=== PATIENT | female | born 1980 | race Caucasian/White ===

== ENCOUNTER 2020-12-06 00:54 | Emergency (ER) | payer OTHER, SELFPAY ==
--- NOTE | ~2020-12-06 | XR_ITS ---
EXAMINATION: XR chest 2V DATE: 12/06/2020 01:31 INDICATION: Midsternal chest pain TECHNIQUE: PA and lateral views of the chest were obtained. COMPARISON: None FINDINGS: The lungs are clear with no focal airspace opacities, pulmonary edema, pleural effusion or pneumothor ax. The cardiomediastinal silhouette is normal. Visualized bones and soft tissues are unremarkable. IMPRESSION: 1. Normal chest radiograph. Reviewed, dictated and finalized at location A. IMPRESSION: 1. Normal chest radiograph.
[2020-12-06 01:01] VITALS: BP 140/72; PULSE 83; RESP 15; TEMP 36.9; O2SAT 100
--- NOTE | 2020-12-06 01:06 | ECG_ITS ---
Measurements Intervals [place] Rate: 79 P: 51 HI: 135 QRS: -15 QRSD: 92 T: 28 QT: 361 QTc: 416 Interpretive Statements SINUS RHYTHM BASELINE ARTIFACT- I, II, III, AVL, AVF, V6 NORMAL ECG Electronically Signed On 12-06-2020 7:10:07 CDT by Charly Rahman D.O.
--- NOTE | 2020-12-06 01:15 | ED.CHESTPAIN ---
HPI - Chest Pain General Chief Complaint: Chest Pain Stated Complaint: chest pain Time Seen by Provider: 12/06/20 01:11 History of Present Illness HPI narrative: Substernal chest pain since earlier today. Becomes sharp with breathing. Associated with cough and mild HARMAN. No fever, chills. She gets mild improvement from albuterol inhaler. Related Data Allergies Allergy/AdvReac Type Severity Reaction Status Date / Time erythromycin base Allergy Severe Dyspnea / Verified 01/20/19 09:38 SOB prochlorperazine AdvReac Severe Other Verified 01/20/19 09:38 Review of Systems Review of Systems: All systems reviewed & are unremarkable except as noted in HPI and below Cardiovascular: Cardiovascular: Reports chest pain Respiratory: Respiratory: Reports chest congestion, Reports cough and Reports dyspnea Gastrointestinal: Gastrointestinal: Reports no additional gastrointestinal complaints FORMERLY [facility] Past Medical History Medical History (Updated 12/06/20 @ 05:09 by Bryant Vicente MD) Bronchitis Social History Social History (Updated 12/06/20 @ 05:09 by Bryant Vicente MD) Smoking status: Current every day smoker Exam Const: General: no acute distress and alert Nutritional Appearance: obese Orientation/consciousness: patient oriented x3 HENMT: Head: normal to inspection Neck: Neck: normal visual inspection Chest: Chest palpation & inspection: no tenderness Resp: Effort & Inspection: normal respiratory effort Auscultation: clear to auscultation bilaterally, no rales, no rhonchi and no wheezes Cardio: Jugular venous distension: no JVD Rate: regular rate Rhythm: regular rhythm Heart sounds: no murmurs GI: Inspection: non-distended GI Palp: Yes Soft to palpation and No Tenderness to palpation present (GI) Skin: General skin exam: normal color Neuro: General: patient oriented x3 and moves all extremities Speech: normal speech Extrem: General: no edema Psych: Appearance: well kempt Affect: normal affect Course Vital Signs Vital signs: Vital Signs Temperature 36.9 C 12/06/20 01:01 Pulse Rate 83 12/06/20 01:01 Respiratory Rate 15 12/06/20 01:01 Blood Pressure 140/72 12/06/20 01:01 Pulse Oximetry 100 12/06/20 01:01 Temperature 36.9 C 12/06/20 01:01 Pulse Rate 76 12/06/20 03:59 Respiratory Rate 18 12/06/20 03:59 Blood Pressure 122/72 12/06/20 03:59 Pulse Oximetry 97 12/06/20 03:59 MDM - Chest Pain Differential Diagnosis Differential diagnosis: Likely atypical chest pain and other (pleurisy) Medical Records Data Attestation: I reviewed the patient's medical records. Lab Data Attestation: I reviewed the patient's lab results. Result diagrams: 12/06/20 01:14 12/06/20 01:14 Labs: Lab Results 12/06/20 12/06/20 12/06/20 Range/Units 01:14 01:14 01:14 WBC 8.1 (4.5-10.0) K/mm3 RBC 4.28 (4.2-5.4) M/mm3 Hgb 12.5 (12.0-15.0) g/dL Hct 39.1 (37.0-47.0) % MCV 91.4 (80-100) fl MCH 29.2 (26-34) pg MCHC 32.0 (32-36) g/dl RDW 14.3 (11.5-14.5) % Plt Count 312 (150-375) k/mm3 MPV 9.9 (7.4-10.4) fl Immature Gran % (Auto) 0.4 (0-0.5) % Neut % (Auto) 60.5 (45.5-73.1) % Lymph % (Auto) 25.9 (18.3-44.2) % [place] % (Auto) 6.9 (2.6-8.5) % Eos % (Auto) 5.4 H (0-4.4) % Baso % (Auto) 0.9 (0.2-1.2) % Lymph # (Auto) 2.09 (0.9-3.2) K/mm3 [place] # (Auto) 0.6 (0.1-0.6) K/mm3 Eos # (Auto) 0.4 H (0-0.3) K/mm3 Baso # (Auto) 0.1 (0.0-0.1) K/mm3 Abs Immat Gran (auto) 0.03 (0.00-0.031) K/mm3 Absolute Neuts (auto) 4.9 (1.3-6.7) K/mm3 Absolute Nucleated RBC 0.0 (0.0-0.012) K/mm3 Nucleated RBC % 0.0 (0.0-0.2) % PT 11.9 (11.1-14.7) Seconds INR 0.8 APTT 23.8 (22.3-36.8) SECONDS Sodium 137 (137-145) mmol/L Potassium 4.2 (3.4-5.0) mmol/L Chloride 104 (98-107) mmol/L Carbon Dioxide 29 (22-30) mmol/L Anion Gap
[2020-12-06 01:29] LABS: Basophils Absolute Auto 0.1 K/mm3 (0.0-0.1); Basophils Percent Auto 0.9 % (0.2-1.2); Eosinophils Absolute Auto 0.4 K/mm3 (0-0.3); Eosinophils Percent Auto 5.4 % (0-4.4); Hematocrit 39.1 % (37.0-47.0); Hemoglobin 12.5 g/dL (12.0-15.0); Immature Granulocyte Absolute 0.03 K/mm3 (0.00-0.031); Immature Granulocyte Percent A 0.4 % (0-0.5); Lymphocytes Absolute Auto 2.09 K/mm3 (0.9-3.2); Lymphocytes Percent Auto 25.9 % (18.3-44.2); Mean Corpuscular Hemoglobin 29.2 pg (26-34); Mean Corpuscular Volume 91.4 fl (80-100); Mean Platelet Volume 9.9 fl (7.4-10.4); Monocytes Absolute Auto 0.6 K/mm3 (0.1-0.6); Monocytes Percent Auto 6.9 % (2.6-8.5); Neutrophils Absolute Auto 4.9 K/mm3 (1.3-6.7); Neutrophils Percent Auto 60.5 % (45.5-73.1); Platelet Count Result 312 k/mm3 (150-375); Red Blood Count 4.28 M/mm3 (4.2-5.4); Red Cell Distribution Width 14.3 % (11.5-14.5); White Blood Count 8.1 K/mm3 (4.5-10.0)
[2020-12-06 01:47] LABS: INR 0.8; Prothrombin Time 11.9 Seconds (11.1-14.7)
[2020-12-06 01:48] LABS: Anion Gap 4 mmol/L (8-16); Blood Urea Nitrogen 23 mg/dL (7-17); Calcium 9.3 mg/dL (8.4-10.2); Carbon Dioxide 29 mmol/L (22-30); Chloride 104 mmol/L (98-107); Estimated CRCL calculation 110 ml/min; Estimated Glomerular Filt Rate > 60; Glucose 134 mg/dL (65-105); Partial Thromboplastin Time 23.8 SECONDS (22.3-36.8); Potassium 4.2 mmol/L (3.4-5.0); Sodium 137 mmol/L (137-145)
[2020-12-06 02:00] LABS: Troponin I < 0.012 ng/mL (0.000-0.034)
[2020-12-06] MEDS: KETOROLAC 30 MG/ML VIAL (*BKC) IV PUSH (02:26)
[2020-12-06] MEDS: ASPIRIN 81 MG CHEWABLE TABLET 324 MG PO (02:27)
[2020-12-06 02:32] VITALS: BP 120/73; PULSE 66; RESP 18; O2SAT 100
[2020-12-06 02:51] VITALS: PULSE 89; RESP 20
[2020-12-06] MEDS: IPRATROPIUM BR 0.02% INH SOLN 0.5 MG/2.5 ML VIAL INHALATION (02:51)
[2020-12-06] MEDS: ALBUTEROL SULFATE NEB 2.5 MG/0.5 ML INH 5 MG INHALATION (02:51)
[2020-12-06 02:58] VITALS: PULSE 79; RESP 20
[2020-12-06 03:59] VITALS: BP 122/72; PULSE 76; RESP 18; O2SAT 97
== END 2020-12-06 04:02 | disposition home or self-care (01) ==
PROVIDERS: Emergency Provider Emergency Medicine; PCP Physician Assistant
DX: R09.1 Pleurisy (principal); F17.200 Nicotine dependence, unspecified, uncomplicated
CPT/HCPCS: 36415; 71046; 80048; 84484; 85025; 85610; 85730; 93005; 94640; 96374; 99284; A9270; J1885

== ENCOUNTER 2021-12-10 11:11 | Emergency (ER) | payer OTHER, SELFPAY ==
--- NOTE | ~2021-12-10 | CT_ITS ---
EXAMINATION: CT brain wo con, CT facial bones wo con EXAM DATE: 12/10/2021 12:13 INDICATION: Trauma, head injury. TECHNIQUE: Spiral CT of the head was performed without contrast. Axial, coronal and sagittal images were reviewed. Spiral CT of the facial bones was performed without contrast. Axial images were revie wed. Coronal and sagittal reformatted images were also reviewed. The dose-length product (DLP) for this examination was 529.67 (accession [id number]), 318.54 (accession [id number]) mGy-cm. Th e exposure was tailored according to patient size, and iterative reconstruction (ASIR) was used as ad ditional dose reduction technique. There is no prior study for comparison. FINDINGS: HEAD CT: There is no acute intraparenchymal hemorrhage. No evidence of intraparenchymal brain mass l esion. No evidence of acute infarction. There is no mass effect or midline shift. There is no obstru ctive hydrocephalus suspected. There are no extra-axial collections. There are no calvarial acute f ractures. FACIAL CT: There are no displaced acute nasal bone fractures. The mandible, sinuses and orbits are i ntact. The orbits, globes and extraocular muscles are unremarkable. Soft tissue is unremarkable. The visualized sinuses and mastoid air cells are well aerated. Moderate leftward nasal septal dev iation. Right-sided sharmin bullosa. IMPRESSION: 1. No acute intracranial findings. 2. No acute facial fracture. Reviewed, dictated and finalized at location A. IMPRESSION: 1. No acute intracranial findings. 2. No acute facial fracture.
[2021-12-10 11:20] VITALS: BP 158/89; PULSE 61; RESP 18; TEMP 36.6; O2SAT 100
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
[2021-12-10] MEDS: IBUPROFEN 600 MG TABLET PO (12:46)
[2021-12-10 13:04] VITALS: BP 156/88; PULSE 60; RESP 18; O2SAT 99
== END 2021-12-10 13:06 | disposition home or self-care (01) ==
PROVIDERS: Emergency Provider Emergency Medicine; PCP Physician Assistant
DX: S00.93XA Contusion of unspecified part of head, initial encounter (principal); W51.XXXA Accidental striking against or bumped into by another person, initial encounter
CPT/HCPCS: 70450; 70486; 99284; A9270

== ENCOUNTER 2022-04-16 11:41 | Emergency (ER) | payer OTHER, SELFPAY ==
--- NOTE | 2022-04-16 11:43 | ED.BACK ---
HPI - Back Pain/Injury General Stated Complaint: Back Pain Time Seen by Provider: 04/16/22 11:43 Source: patient Mode of arrival: ambulatory Limitations: no limitations History of Present Illness HPI Narrative: Ms. Bean is a 41-year-old female patient presenting to the clinic today with complaints of right-sided back pain. She reports this is been going on for couple days now and has gradually gotten worse. States that this happened when she woke up on Wednesday. Denies any known injury. Has pain to the right side of her back/hip that is radiating down her leg. States when she straightens her foot that makes the pain worse. Related Data Home Medications Medication Instructions Recorded Confirmed armodafinil 150 mg tablet mg PO 12/10/21 atorvastatin 80 mg tablet 12/10/21 gabapentin 600 mg tablet 12/10/21 12/10/21 meloxicam 15 mg tablet 12/10/21 ropinirole 0.5 mg tablet mg 12/10/21 Allergies Allergy/AdvReac Type Severity Reaction Status Date / Time erythromycin base Allergy Severe Dyspnea / Verified 01/20/19 09:38 SOB metformin Allergy Rash Verified 12/10/21 11:24 prochlorperazine AdvReac Severe Other Verified 01/20/19 09:38 Review of Systems Review of Systems: Pertinent positives per HPI. Patient denies any fever, chills, rash, headache, visual changes, dizziness, cough, runny nose, sore throat, shortness of breath, chest pain, palpitations, nausea, vomiting, diarrhea, constipation, abdominal pain, or any urinary issues. PMFSH Past Medical History Medical History Bronchitis Social History Social History Smoking status: Current every day smoker Comments At the time of my signature, I reviewed and agree with the nursing past medical, surgical, social, and family history. There is no relevant family history pertinent to the patient complaint. Exam Narrative: General: Well-developed, well nourished, in no apparent distress Head: Normocephalic, atraumatic. Cardio: Regular rate and rhythm, s1 and s2 normal, no murmur appreciated. Resp: Clear to auscultation bilaterally, no rhonchi, rales, wheezing or rubs. Musculoskeletal: No deformity, tender to palpation over the SI joint and right side of the para spinous muscles, pain with hip flexion and internal and external rotation of the hip, patellar reflexes 2+, negative foot drop, muscle strength strong and equal, peripheral pulse strong, no edema, no cyanosis, slow and limping gait and station Course Course Emergency Course: Portions of this record may have been created with voice recognition software. Level of Care: Express Care Visit Vital Signs Vital signs: Vital signs reviewed MDM - Back Pain/Injury MDM Narrative Medical decision making narrative: At the time of visit patient is resting comfortably on the exam table. I suspect the patient has right-sided sciatica and will treat with a course of some Flexeril and prednisone. Supportive measures were discussed with the patient she voiced understanding of discharge instructions and agrees to treatment plan. If symptoms persist recommend follow-up with her PCP as she may need an MRI to rule out impingement syndrome Differential Diagnosis Differential diagnosis: Likely lumbar radiculopathy, sciatica and strain of lumbar region Discharge Plan Discharge Clinical Impression: Acute right-sided back pain with sciatica Patient Disposition: Home, Self-Care Condition: Stable Instructions: Antibiotic Form, Sciatica (ED), Lumbar Radiculopathy (ED), Lower Back Exercises (ED) Additional Instructions: May apply icy hot, blue emu, or a lidocaine to the affected area Massage the area using a tennis ball up against the wall to help alleviate some of the pain May apply ice to the affected area Take prednisone as prescribed Flexeril as needed for muscle spasms. Sedatio
[2022-04-16 11:49] VITALS: BP 157/88; PULSE 83; RESP 16; TEMP 36.8; O2SAT 100
== END 2022-04-16 12:01 | disposition home or self-care (01) ==
PROVIDERS: Emergency Provider Nurse Practitioner Family; PCP Physician Assistant
DX: M54.41 Lumbago with sciatica, right side (principal)
CPT/HCPCS: 99213; G0463

== ENCOUNTER 2022-07-10 11:03 | Emergency (ER) | payer OTHER, SELFPAY ==
[2022-07-10 11:16] VITALS: BP 144/85; PULSE 81; RESP 16; TEMP 36.4; O2SAT 98
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
== END 2022-07-10 12:02 | disposition home or self-care (01) ==
PROVIDERS: Emergency Provider Nurse Practitioner; PCP Physician Assistant
DX: S00.12XA Contusion of left eyelid and periocular area, initial encounter (principal); Y00.XXXA Assault by blunt object, initial encounter; Y99.0 Civilian activity done for income or pay
CPT/HCPCS: 99213; G0463

== ENCOUNTER 2022-09-29 07:25 | Outpatient (CLI) | payer MEDICAID, SELFPAY ==
--- NOTE | 2022-09-29 08:06 | ECG_ITS ---
Measurements Intervals [place] Rate: 85 P: 60 [place]: 133 QRS: -13 QRSD: 98 T: 48 QT: 384 QTc: 458 Interpretive Statements SINUS RHYTHM INCOMPLETE RIGHT BUNDLE BRANCH BLOCK DELAYED PRECORDIAL R/S TRANSITION BORDERLINE ECG COMPARED TO ECG 12/06/2020 01:02:21 NO SIGNIFICANT CHANGES Electronically Signed On 09-29-2022 8:23:47 [employer]ER by Charly Rahman D.O.
[2022-09-29 08:37] LABS: Alanine Aminotransferase 22 U/L (6-35); Alkaline Phosphatase 91 U/L (38-126); Anion Gap 3 mmol/L (8-16); Aspartate Amino Transferase 21 U/L (14-36); Bilirubin,Total 0.5 mg/dL (0.2-1.3); Blood Urea Nitrogen 15 mg/dL (7-17); Calcium 8.8 mg/dL (8.4-10.2); Carbon Dioxide 27 mmol/L (22-30); Chloride 109 mmol/L (98-107); Estimated Glomerular Filt Rate > 60; Glucose 144 mg/dL (65-110); Potassium 3.7 mmol/L (3.4-5.0); Sodium 139 mmol/L (137-145)
== END 2022-09-29 07:26 | disposition home or self-care (01) ==
PROVIDERS: PCP Physician Assistant; Visit Provider Obstetrics & Gynecology
DX: Z01.812 Encounter for preprocedural laboratory examination (principal); Z01.810 Encounter for preprocedural cardiovascular examination; N94.6 Dysmenorrhea, unspecified; E78.5 Hyperlipidemia, unspecified; I45.10 Unspecified right bundle-branch block
CPT/HCPCS: 36415; 80053; 86850; 86900; 86901; 93005

== ENCOUNTER 2022-09-30 01:20 | Day surgery (SDC) | payer MEDICAID, SELFPAY ==
[2022-09-21 11:20] VITALS: BMI 35.2
--- NOTE | 2022-09-21 11:27 | PC.NURSE ---
Report to the Outpatient Waiting Room, entrance under the green pavilion located off [facility], at time 7:30 on date 09/30/22. Planned Procedure Time: 9:30. Time changes happen often and if your time is changed the preop area will call you the afternoon before. - You and your visitor will be asked to self-screen and do not enter if you have any COVID symptoms. - Only one visitor is requested with a max of two and NO children visitors are allowed at this time. - The patient visitor may be requested to leave or wait in car when not with patient due to distancing restrictions. - A mask is optional within the hospital. Patients may have clear liquids (water, carbonated beverages, clear teas, apple juice) until 3 hours prior to surgery (6:30) with a maximum of 20 ounces. - No food from midnight until time of surgery Take the following medications with a SIP of water the morning of surgery: CITALOPRAM Medications to discontinue per physician: N/A Date to take last dose: N/A Please no make-up, nail zambian, hairspray, perfume, deodorant, or body powder the day of surgery. No jewelry (including any body piercings) or valuables the day of surgery, leave them at home. Please take a shower or bath the night before, or the morning of, surgery with an antibacterial soap. Wear comfortable, loose fitting clothing. - Jewelry must be removed prior to entering the operating room. Rings and piercings that are not removed may be cut off. - The hospital will not accept responsibility for valuables. - Please leave all valuables, including medications, at home the day of surgery. If you are going home after surgery, a licensed shag truck driver must drive you home. - NO public transportation without another adult if you receive anesthesia. - We recommend that an adult stay with you for 24 hours following discharge. - We also recommend that you do not drive, make important decision, drink alcoholic beverages, or take any drugs that were not prescribed by your health care provider for at least 24 hours after your discharge time. Follow any additional instructions given to you from your surgeon. If you or anyone in your household have experienced Covid symptoms in the past week, please notify your surgeon or the nurse liaison at the phone number below for possible testing. Telephone instructions given to PT - ASH ARANGO and asked if any additional questions and then verbalized understanding. Patient advised to call surgeon office or pre surgery nurse liaison [phone] if any additional questions.
[2022-09-30] VITALS (9 sets, daily range): BP systolic 115–140; BP diastolic 52–91; PULSE 69–106; RESP 16–24; TEMP 36.5–37.3; O2SAT 92–99
--- NOTE | 2022-09-30 07:40 | WPDANESEPPF ---
Anes - Initial Pre Proc Eval Procedure: Operation Date: 09/30/22 09:30 Proposed Procedures p Total Laparoscopic Hysterectomy with Bilateral Salpingo Oophorectomy - Radha Haynes MD Date/Time: 09/30/22 07:40 Surgeon: Radha Haynes MD Pre Op Diagnosis: dysmenorrhea Patient Data Age: 42 Gender: F Height: 1.75 m Weight: 108 kg Allergies Allergy/AdvReac Type Severity Reaction Status Date / Time erythromycin base Allergy Severe Nausea and Verified 09/30/22 07:45 Vomiting metformin Allergy Rash Verified 09/30/22 07:45 prochlorperazine AdvReac Severe Agitated Verified 09/30/22 07:45 Home Medications Medication Instructions Recorded Confirmed Type atorvastatin 80 mg tablet 80 mg PO DAILY 12/10/21 09/21/22 History gabapentin 600 mg tablet 600 mg PO HS 12/10/21 09/21/22 History meloxicam 15 mg tablet 15 mg PO DAILY PRN Pain 12/10/21 09/21/22 History ropinirole 0.5 mg tablet 0.5 mg PO HS 12/10/21 09/21/22 History medroxyprogesterone 150 mg/mL 150 mg IM [id number] 07/10/22 09/21/22 History intramuscular suspension ondansetron HCl 8 mg tablet 8 mg PO Q8H PRN Nausea 07/10/22 09/21/22 History sitagliptin phosphate 100 mg 100 mg PO HS 07/10/22 09/21/22 History tablet (Januvia) trazodone 50 mg tablet 50 mg PO PRN PRN Anxiety 07/10/22 09/21/22 History albuterol sulfate 90 mcg/actuation 2 puff inhalation QID PRN Allergy 09/21/22 09/21/22 History aerosol inhaler Symptoms armodafinil 250 mg tablet 250 mg PO QAM 09/21/22 09/21/22 History citalopram 40 mg tablet 40 mg PO DAILY 09/21/22 09/21/22 History dexlansoprazole 60 mg 80 mg PO DAILY 09/21/22 09/21/22 History capsule,biphase delayed release (Dexilant) Patient hx anesthesia problems: none Family hx anesthesia problems: none Results Review: All pre-operative results and documents have been reviewed as part of the pre-operative evaluation. [facility] Past Medical History Medical History (Updated 09/30/22 @ 07:41 by Wilian Aevry DO) Anxiety Bronchitis Depression GERD (gastroesophageal reflux disease) Hyperlipidemia Narcolepsy DARCI (obstructive sleep apnea) PCOS (polycystic ovarian syndrome) RLS (restless legs syndrome) Surgical History Surgical History (Updated 09/30/22 @ 07:41 by Wilian Avery DO) History of tonsillectomy Social History Social History (Reviewed 07/10/22 @ 11:57 by Kaelyn Aguirre, [facility], ) Smoking packs per day: 1.25 Smoking cigarettes per day: 25.0 Years smoked: 20 Smoking pack-years: 25.00 Smoking status: Current every day smoker Tobacco type: cigarettes Alcohol intake: never Substance use: never Substance use type: does not use Living arrangements: with family Spiritual care concerns: No Anes - Eval Final PreProcedure Day of Procedure 09/30/22 07:40 Patient weight: obese Heart: regular rate and rhythm Lungs: clear to auscultation Airway: Mallampati scale class II Neurological: alert and oriented Last oral intake: >/= 8 hours ASA classification: III Emergent: no Anesthetic plan: proceed Anesthesia type and monitoring: general ETT and standard monitoring Results Review: All pre-operative results and documents have been reviewed as part of the pre-operative evaluation. Informed Consent: The patient's anesthetic plan and its attendant risks and benefits were discussed with the patient/family/POA. Questions were solicited and answers provided to the satisfaction of the patient/family/POA.
[2022-09-30] MEDS: LACTATED RINGERS 1,000 ML 30 ML IV CONT ×2 (08:02→10:40)
[2022-09-30] MEDS: ACETAMINOPHEN 500 MG TABLET 1000 MG PO (08:03)
[2022-09-30] MEDS: KETOROLAC 15 MG/ML VIAL (*BKC) IV PUSH (08:04)
--- NOTE | 2022-09-30 08:09 | WPDHPUPDATE1 ---
History and Physical Update Update Date/Time: 09/30/22 08:09 History and Physical has been reviewed, including an updated exam of the patient. There are NO changes in the patient's condition. Risks, benefits, and alternatives have been discussed and questions answered. Patient agrees to proceed with procedure.
[2022-09-30] MEDS: ceFAZolin 2 GM/D5W 50 ML 2 GM/50 ML BAG IVPB (08:45)
--- NOTE | 2022-09-30 10:04 | SUR.OPER ---
PATIENTS PERINEAL RING REMOVED PRIOR TO PREP. 1 SILVER BALL AND RING IN CUP WITH PATIENT LABEL/WITH PATIENT TO PACU.
--- NOTE | 2022-09-30 10:38 | W.PM.PROC2 ---
Procedure Note - Detailed Date of Procedure 09/30/22 Pre-op Diagnosis dysmenorrhea Post-op Diagnosis Same Procedure Performed Total laparoscopic hysterectomy and bilateral salpingo-oophorectomy. Surgeon Radha Haynes MD Anesthesia General Findings Normal pelvic anatomy Description of Procedure This patient was taken to the operating room. She was prepped and draped in the dorsal lithotomy position after induction of general anesthesia. The uterine manipulator and Stephanie cup were placed. This was done with a speculum and tenaculum. The speculum was placed. The cervix was grasped with a tenaculum. The stay sutures were placed at 3 and 9:00 a.m.. The stay sutures of 0 Vicryl were brought through the appropriately sized Stephanie cup. The tip of the HARINI manipulator was placed in the intrauterine cavity. The cup was slid into place around the cervix and into the fornices. It was locked into place. The sutures were then wrapped around the handle and tied under tension. A 5 mm skin incision was made in the left upper quadrant the abdomen. A 5 mm trocar was inserted into the intrauterine cavity under direct visualization of the scope. Pneumoperitoneum was achieved. A left lower quadrant 11 mm incision was made with scalpel. An 11 mm trocar was inserted into the anterior abdominal cavity under direct visualization the scope. A 5 mm infraumbilical incision was made with a scalpel and a 5 mm trocar was inserted the intra-abdominal cavity under direct visualization of the scope. Bilateral ureteral lysis was performed. This was done from the pelvic brim down to the uterine artery. This was done with careful dissection using sharp and blunt dissection. The infundibulopelvic ligaments were isolated after identification of the ureters bilaterally. These infundibulopelvic ligaments were cauterized and transected with LigaSure cautery. The para ovarian tissue was cauterized and transected with LigaSure cautery bilaterally. Moving around the ovary into the broad ligament the tissue was cauterized transected with LigaSure cautery. The round ligaments were cauterized transected with LigaSure cautery this was all done in a bilateral fashion. In a stepwise fashion along the lateral aspects of the uterus the round ligament and broad ligaments were cauterized transected down to the level of the uterine arteries. A bladder flap was created in the bladder was moved distally to the end of the cervix and over the Stephanie cup. The bilateral uterine arteries were cauterized and transected. Colpotomy was then performed. In a circumferential fashion the vagina was transected using unipolar cautery. The incision was made down on the Stephanie cup. The uterus, cervix, fallopian tubes and ovaries were taken out through the vagina. A pneumo occluder was placed in the vagina. The vaginal cuff was closed with a 0 V lock suture in a running fashion. The pelvis was irrigated with copious amounts antibiotic irrigation. The ureters were again examined and found to be intact and flowing freely under the uterine arteries into the bladder. The bladder was intact. It was examined directly. The vagina was irrigated with Betadine solution after removal of the Pneumo occluder. The patient was taken to recovery room. She was stable condition. Sponge lap and needle counts were correct x2. Estimated Blood Loss 150 Drains Yes Packing No Pathology Yes Complications No immediate complications Condition Stable Disposition Floor
[2022-09-30] MEDS: fentaNYL CITRATE INJ (*CRX) 100 MCG/2 ML VIAL 25 MCG IV PUSH ×5 (11:05→12:06)
--- NOTE | 2022-09-30 12:20 | ADMGEN ---
This patient, Veena Bean, was admitted to [facility] 2nd Floor Room 283-00. Patient/family oriented to hospital policies and general routines including ID bracelet, bed and alarms, visiting hours, pain management, procedures, bathroom and other care routines, personal items, smoking policy, room service/diet, and visiting hours. Information on how to activate the Rapid Response Team has been discussed. Patient/Family are encouraged to report perceived risks to care and to ask questions if they do not understand what they are told or what they should do.
[2022-09-30] MEDS: DEXTROSE 5%/0.45% SOD CHL 1,000 ML 125 ML IV CONT (12:39)
[2022-09-30] MEDS: KETOROLAC 30 MG/ML VIAL (*BKC) IV PUSH (13:44)
[2022-09-30] MEDS: HYDROcodone/acetaminophen (*CRX) 5-325 MG TABLET 1 TAB PO (14:49)
== END 2022-09-30 17:10 | disposition home or self-care (01) ==
LOC: ANHSURGERY 07:23 → ANHOB2 12:20
PROVIDERS: PCP Physician Assistant; Visit Provider Obstetrics & Gynecology
PROC: 0UT9FZZ Resection of Uterus, Via Natural or Artificial Opening With Percutaneous Endoscopic Assistance (ICD-10-PCS; CPT 58571; principal; 2022-09-30 09:30)
DX: N72 Inflammatory disease of cervix uteri (principal); N83.8 Other noninflammatory disorders of ovary, fallopian tube and broad ligament; N94.6 Dysmenorrhea, unspecified; E28.2 Polycystic ovarian syndrome; G47.33 Obstructive sleep apnea (adult) (pediatric); G25.81 Restless legs syndrome; E78.5 Hyperlipidemia, unspecified; K21.9 Gastro-esophageal reflux disease without esophagitis; F41.9 Anxiety disorder, unspecified; F32.A Depression, unspecified; Z79.84 Long term (current) use of oral hypoglycemic drugs; Z79.51 Long term (current) use of inhaled steroids; F17.210 Nicotine dependence, cigarettes, uncomplicated; E66.9 Obesity, unspecified; Z68.35 Body mass index [BMI] 35.0-35.9, adult
CPT/HCPCS: 58571; 88307; 99199; A9270; J0360; J0690; J1100; J1170; J1885; J2250; J2405; J2704; J3010; J7030; J7120

== ENCOUNTER 2023-03-14 19:30 | Emergency (ER) | payer OTHER, SELFPAY ==
[2023-03-14 19:32] VITALS: BP 150/82; PULSE 80; RESP 18; TEMP 36.6; O2SAT 100
--- NOTE | 2023-03-14 20:08 | ED.EYEPROB ---
HPI - Eye Problem General Chief complaint: Eye Problems Stated complaint: left eye swelling Time Seen by Provider: 03/14/23 19:42 Source: patient Mode of arrival: ambulatory Limitations: no limitations History of Present Illness HPI Narrative: This is a 42-year-old female who presents to the ED with chief complaint of left eye irritation onset today around 10 AM. Patient reports that she has history of allergic rhinitis and conjunctivitis but today is much worse than usual. She does not note any injury to the eye. Reports constant tearing. She does not endorse any crusting or purulent material. She states she was cleaning the kitchen and thinks that there may be some dust in the eye. Endorses photophobia. Denies fevers, chills, facial swelling, vision changes. Related Data Home Medications Medication Instructions Recorded Confirmed atorvastatin 80 mg tablet 80 mg PO DAILY 12/10/21 09/30/22 gabapentin 600 mg tablet 600 mg PO HS 12/10/21 09/30/22 meloxicam 15 mg tablet 15 mg PO DAILY PRN Pain 12/10/21 09/30/22 ropinirole 0.5 mg tablet 0.5 mg PO HS 12/10/21 09/30/22 medroxyprogesterone 150 mg/mL 150 mg IM [id number] 07/10/22 09/21/22 intramuscular suspension ondansetron HCl 8 mg tablet 8 mg PO Q8H PRN Nausea 07/10/22 09/30/22 sitagliptin phosphate 100 mg 100 mg PO HS 07/10/22 09/30/22 tablet (Januvia) trazodone 50 mg tablet 50 mg PO PRN PRN Anxiety 07/10/22 09/30/22 albuterol sulfate 90 mcg/actuation 2 puff inhalation QID PRN Allergy 09/21/22 09/30/22 aerosol inhaler Symptoms armodafinil 250 mg tablet 250 mg PO QAM 09/21/22 09/30/22 citalopram 40 mg tablet 40 mg PO DAILY 09/21/22 09/30/22 dexlansoprazole 60 mg 80 mg PO DAILY 09/21/22 09/30/22 capsule,biphase delayed release (Dexilant) Allergies Allergy/AdvReac Type Severity Reaction Status Date / Time erythromycin base Allergy Severe Nausea and Verified 03/14/23 20:07 Vomiting metformin Allergy Rash Verified 03/14/23 20:07 prochlorperazine AdvReac Severe Agitated Verified 03/14/23 20:07 PMFSH Past Medical History Medical History (Updated 03/15/23 @ 00:00 by Kartik Skinner) Anxiety Bronchitis Depression GERD (gastroesophageal reflux disease) Hyperlipidemia Narcolepsy DARCI (obstructive sleep apnea) PCOS (polycystic ovarian syndrome) RLS (restless legs syndrome) Surgical History Surgical History (Updated 09/30/22 @ 07:41 by Wilian Avery, DO) History of tonsillectomy Social History Social History Smoking packs per day: 1.25 Smoking cigarettes per day: 25.0 Years smoked: 20 Smoking pack-years: 25.00 Smoking status: Current every day smoker Tobacco type: cigarettes Alcohol intake: never Substance use: never Substance use type: does not use Living arrangements: with family Spiritual care concerns: No Exam Narrative: GENERAL: Well-appearing, well-nourished, and in no acute distress. HEAD: Normocephalic, atraumatic. EYES: PERRLA and EOMI. vision intact. Conjunctival injection on the left. Clear tearing on the left. ENT: Nares clear, no rhinorrhea or epistaxis. Mucous membranes moist. Oropharynx without tonsillar hypertrophy exudate or other lesions. NECK: Supple. No adenopathy or masses. CHEST: No respiratory distress. Clear to auscultation. No wheezes rales or rhonchi HEART: Regular rate and rhythm. No murmur heard. Normal peripheral pulses. ABDOMEN: Soft, nontender, nondistended, normal active bowel sounds. MSK: Normal range of motion. No edema. SKIN: Warm, dry, no rash. NEURO: Alert and oriented x3. No focal deficits. PSYCH: Normal mood and affect. Feldman lamp examination left eye: Able to visualize possible dust particulates in the inferior lid margin. Removed with ease. Immediate relief with tetracaine. I was well irrigated. Course Vital Signs Vital signs: Vital Signs Temperature 97.9 F 03/14/23 19:32 Pulse Rate
== END 2023-03-14 20:27 | disposition home or self-care (01) ==
PROVIDERS: Emergency Provider Physician Assistant; PCP Physician Assistant
DX: T15.12XA Foreign body in conjunctival sac, left eye, initial encounter (principal); H10.9 Unspecified conjunctivitis; E78.5 Hyperlipidemia, unspecified; E28.2 Polycystic ovarian syndrome; G47.33 Obstructive sleep apnea (adult) (pediatric); G25.81 Restless legs syndrome; K21.9 Gastro-esophageal reflux disease without esophagitis; F41.9 Anxiety disorder, unspecified; F32.A Depression, unspecified; F17.210 Nicotine dependence, cigarettes, uncomplicated; Z79.84 Long term (current) use of oral hypoglycemic drugs
CPT/HCPCS: 65205; 65220; 99283; A9270

== ENCOUNTER 2023-08-09 08:06 | Emergency (ER) | payer SELFPAY ==
--- NOTE | 2023-08-09 08:10 | ED.FEMALEGU ---
HPI - Female Genitourinary General Chief complaint: Urogenital-Female Stated complaint: UTI Time Seen by Provider: 08/09/23 08:08 Source: patient Mode of arrival: ambulatory Limitations: no limitations History of Present Illness HPI Narrative: Veena is a 43-year-old female patient presenting to the clinic today with complaints of possible UTI. She reports she developed bladder pain and pain in her urethra this morning around 730. States that this pain woke her up. No fever or chills. Denies any back pain or abdominal pain. Related Data Home Medications Medication Instructions Recorded Confirmed atorvastatin 80 mg tablet 80 mg PO DAILY 12/10/21 08/09/23 meloxicam 15 mg tablet 15 mg PO DAILY PRN Pain 12/10/21 08/09/23 ropinirole 0.5 mg tablet 0.5 mg PO HS 12/10/21 08/09/23 sitagliptin phosphate 100 mg 100 mg PO HS 07/10/22 08/09/23 tablet (Januvia) trazodone 50 mg tablet 50 mg PO PRN PRN Anxiety 07/10/22 08/09/23 armodafinil 250 mg tablet 250 mg PO QAM 09/21/22 08/09/23 citalopram 40 mg tablet 40 mg PO DAILY 09/21/22 08/09/23 dexlansoprazole 60 mg 80 mg PO DAILY 09/21/22 08/09/23 capsule,biphase delayed release (Dexilant) Allergies Allergy/AdvReac Type Severity Reaction Status Date / Time erythromycin base Allergy Severe Nausea and Verified 03/14/23 20:07 Vomiting metformin Allergy Rash Verified 03/14/23 20:07 prochlorperazine AdvReac Severe Agitated Verified 03/14/23 20:07 Review of Systems Review of Systems: Pertinent positives per HPI. Patient denies any fever, chills, rash, headache, visual changes, dizziness, cough, runny nose, sore throat, shortness of breath, chest pain, palpitations, nausea, vomiting, diarrhea, constipation, abdominal pain, or any urinary issues. [facility] Past Medical History Medical History Anxiety Bronchitis Depression GERD (gastroesophageal reflux disease) Hyperlipidemia Narcolepsy DARCI (obstructive sleep apnea) PCOS (polycystic ovarian syndrome) RLS (restless legs syndrome) Surgical History Surgical History History of tonsillectomy Social History Social History Smoking packs per day: 1.25 Smoking cigarettes per day: 25.0 Years smoked: 20 Smoking pack-years: 25.00 Smoking status: Current every day smoker Tobacco type: cigarettes Alcohol intake: never Substance use: never Substance use type: does not use Living arrangements: with family Spiritual care concerns: No Comments At the time of my signature, I reviewed and agree with the nursing past medical, surgical, social, and family history. There is no relevant family history pertinent to the patient complaint. Exam Narrative: General: Well-developed, well nourished, in no apparent distress. Head: Normocephalic, atraumatic. Cardio: Regular rate and rhythm, s1 and s2 normal, no murmur appreciated. Resp: Clear to auscultation bilaterally, no rhonchi, rales, wheezing or rubs. Abdomen: Soft, pliable, bowel sounds present in all quadrants, tender to palpation over urinary bladder, no organomegly, no CVAT tenderness. Course Course Emergency Course: Portions of this record may have been created with voice recognition software. Level of Care: Express Care Visit Vital Signs Vital signs: Vital signs reviewed MDM - Female Genitourinary MDM Narrative Medical decision making narrative: At the time of visit patient is resting on the exam table. UA dip was collected-patient has passed a kidney stone. UA is negative for any infection or blood. I suspect patient may be having some bladder spasms. Taking Pyridium for the next 2 days and increasing fluids and staying well hydrated. She should follow-up with her PCP in 2 days if symptoms persist to determine need for a ultrasound. Supportive measures were discu
[2023-08-09 08:16] VITALS: BP 142/86; PULSE 88; RESP 16; TEMP 36.3; O2SAT 100
== END 2023-08-09 08:42 | disposition home or self-care (01) ==
PROVIDERS: Emergency Provider Nurse Practitioner Family; PCP Physician Assistant
DX: R39.89 Other symptoms and signs involving the genitourinary system (principal); F17.210 Nicotine dependence, cigarettes, uncomplicated; K21.9 Gastro-esophageal reflux disease without esophagitis; E78.5 Hyperlipidemia, unspecified; E28.2 Polycystic ovarian syndrome; G25.81 Restless legs syndrome; F41.9 Anxiety disorder, unspecified; F32.A Depression, unspecified
CPT/HCPCS: 81003; 99213; G0463

== ENCOUNTER 2023-08-12 17:32 | Emergency (ER) | payer SELFPAY | END 2023-08-12 17:35 | disposition left against medical advice (07) | PROVIDERS: PCP Physician Assistant | DX: Z53.21 Procedure and treatment not carried out due to patient leaving prior to being seen by health care provider (principal) | CPT/HCPCS: 99199 ==

== ENCOUNTER 2023-09-01 13:39 | Emergency (ER) | payer SELFPAY ==
[2023-09-01 13:40] VITALS: BP 124/87; PULSE 96; RESP 16; TEMP 36.5; O2SAT 98
--- NOTE | 2023-09-01 15:28 | PC.NURSE ---
Patient being wheeled out by visitor to smoke a cigarette .
--- NOTE | 2023-09-01 15:32 | PC.NURSE ---
Patient seen being wheeled back into department.
== END 2023-09-01 15:38 | disposition left against medical advice (07) ==
LOC: ANHED 15:43
DX: M54.9 Dorsalgia, unspecified (principal)
CPT/HCPCS: 99199

== ENCOUNTER 2023-09-10 13:52 | Emergency (ER) | payer OTHER, SELFPAY ==
[2023-09-10 14:25] VITALS: BP 132/68; PULSE 77; RESP 20; TEMP 36.2; O2SAT 97
--- NOTE | 2023-09-10 14:55 | ED.URI ---
HPI - URI/Sore Throat General Chief Complaint: Upper Respiratory Infection Stated Complaint: Cough/Eyes Irritation History of Present Illness HPI Narrative: 43-year-old female presented for complaint of 10 days of dry cough, sinus congestion, headache. Endorses wheezing at times, cough is nonproductive. Also states both eyes are irritated with redness, green drainage and crust for a few days. Also states her mouth is sensitive to hot and cold. Taking otc meds without relief. Family with similar symptoms. Smokes 1ppd. Denies sob, cp, palpitations, n/v/d/f/c. Related Data Home Medications Medication Instructions Recorded Confirmed atorvastatin 80 mg tablet 80 mg PO DAILY 12/10/21 09/10/23 meloxicam 15 mg tablet 15 mg PO DAILY PRN Pain 12/10/21 09/10/23 ropinirole 0.5 mg tablet 0.5 mg PO HS 12/10/21 09/10/23 sitagliptin phosphate 100 mg 100 mg PO HS 07/10/22 09/10/23 tablet (Januvia) trazodone 50 mg tablet 50 mg PO PRN PRN Anxiety 07/10/22 08/09/23 armodafinil 250 mg tablet 250 mg PO QAM 09/21/22 09/10/23 citalopram 40 mg tablet 40 mg PO DAILY 09/21/22 09/10/23 dexlansoprazole 60 mg 80 mg PO DAILY 09/21/22 09/10/23 capsule,biphase delayed release (Dexilant) Allergies Allergy/AdvReac Type Severity Reaction Status Date / Time erythromycin base Allergy Severe Nausea and Verified 09/10/23 14:59 Vomiting metformin Allergy Rash Verified 09/10/23 14:59 prochlorperazine AdvReac Severe Agitated Verified 09/10/23 14:59 Review of Systems Review of Systems: per HPI [facility] Past Medical History Medical History Anxiety Bronchitis Depression GERD (gastroesophageal reflux disease) Hyperlipidemia Narcolepsy DARCI (obstructive sleep apnea) PCOS (polycystic ovarian syndrome) RLS (restless legs syndrome) Surgical History Surgical History History of tonsillectomy Social History Social History Smoking packs per day: 1.25 Smoking cigarettes per day: 25.0 Years smoked: 20 Smoking pack-years: 25.00 Smoking status: Current every day smoker Tobacco type: cigarettes Alcohol intake: never Substance use: never Substance use type: does not use Living arrangements: with family Spiritual care concerns: No Exam Narrative: GENERAL: mildly Ill-appearing, no acute distress. EYES: conjunctivae clear ENT: Mucous membranes moist. nasal congestion, TMs pearly sagastume with normal light reflex bilaterally; no tragal tenderness. Oropharynx erythematous without lesions. No drooling, no hoarseness, no trismus, uvula midline. No tripod positioning, hot potato voice, or soft palate swelling. NECK: Supple. No lymphadenopathy CHEST: Clear to auscultation, breath sounds equal. No respiratory distress, speaks in full sentences. HEART: Regular rate and rhythm. No murmur heard. SKIN: Warm, dry, no rash. NEURO: Alert and oriented x3. Course Course Emergency Course: Patient is aware of diagnosis, understands and agrees to treatment plan. Anticipatory guidance given. Patient agrees to follow-up as directed and is aware of reasons to seek care at the emergency department. Portions of this record may have been created with voice recognition software Level of Care: Express Care Visit Vital Signs Vital signs: Vital Signs Temperature 97.2 F L 09/10/23 14:25 Pulse Rate 77 09/10/23 14:25 Respiratory Rate 20 09/10/23 14:25 Blood Pressure 132/68 09/10/23 14:25 Pulse Oximetry 97 09/10/23 14:25 Oxygen Delivery Room Air 09/10/23 14:25 Temperature 97.2 F L 09/10/23 14:25 Pulse Rate 77 09/10/23 14:25 Respiratory Rate 20 09/10/23 14:25 Blood Pressure 132/68 09/10/23 14:25 Pulse Oximetry 97 09/10/23 14:25 Oxygen Delivery Room Air 09/10/23 14:25 MDM - URI/Sore Throat MDM Narrative Medical decis
== END 2023-09-10 15:06 | disposition home or self-care (01) ==
PROVIDERS: Emergency Provider Nurse Practitioner Family; PCP Physician Assistant
DX: J32.9 Chronic sinusitis, unspecified (principal); H10.9 Unspecified conjunctivitis; E78.5 Hyperlipidemia, unspecified; F17.210 Nicotine dependence, cigarettes, uncomplicated; Z79.1 Long term (current) use of non-steroidal anti-inflammatories (NSAID); Z79.899 Other long term (current) drug therapy
CPT/HCPCS: 99213; G0463

== ENCOUNTER 2024-08-16 10:01 | Emergency (ER) | payer SELFPAY ==
--- NOTE | 2024-08-16 10:10 | ED_ITS ---
HPI - URI/Sore Throat General Chief Complaint: Upper Respiratory Infection Stated Complaint: cough,hard time breathing with moving Time Seen by Provider: 08/16/24 11:12 Source: patient and RN notes reviewed Mode of arrival: ambulatory Limitations: no limitations History of Present Illness HPI Narrative: 44-year-old female presents with concern for 5 day history of cough, chest muscles hurt with coughing, hoarse voice, chest congestion, body aches, chills. She reports exertional shortness of breath. She reports she has been taking an expectorant MD elicited complaint: cough Related Data Home Medications ?Medication ?Instructions ?Recorded ?Confirmed ?Last Taken ?Type atorvastatin 80 mg tablet 80 mg PO DAILY 12/10/21 08/16/24 09/29/22 History meloxicam 15 mg tablet 15 mg PO DAILY PRN Pain 12/10/21 08/16/24 09/29/22 History ropinirole 0.5 mg tablet 0.5 mg PO HS 12/10/21 08/16/24 09/29/22 History sitagliptin phosphate 100 mg 100 mg PO HS 07/10/22 08/16/24 09/29/22 History tablet (Januvia) trazodone 50 mg tablet 50 mg PO PRN PRN Anxiety 07/10/22 08/16/24 Unknown History armodafinil 250 mg tablet 250 mg PO QAM 09/21/22 08/16/24 09/29/22 History citalopram 40 mg tablet 40 mg PO DAILY 09/21/22 08/16/24 09/29/22 History dexlansoprazole 60 mg 80 mg PO DAILY 09/21/22 08/16/24 09/29/22 History capsule,biphase delayed release (Dexilant) albuterol sulfate 90 mcg/actuation inhalation 08/16/24 Unknown History aerosol inhaler Allergies Allergy/AdvReac Type Severity Reaction Status Date / Time erythromycin base Allergy Severe Nausea and Verified 08/16/24 10:26 Vomiting metformin Allergy Rash Verified 08/16/24 10:26 prochlorperazine AdvReac Severe Agitated Verified 08/16/24 10:26 Review of Systems Review of Systems: CONSTITUTIONAL: Denies malaise, chills, sweats, or fever. EYES: Denies visual changes, redness, or discharge. ENT: Reports rhinorrhea, congestion, sinus pain, otalgia and sore throat. CARDIOVASCULAR: Denies chest pain, palpitations, or edema. RESPIRATORY: Reports cough, exertional dyspnea. GASTROINTESTINAL: Denies abdominal pain, nausea, vomiting, diarrhea SKIN: Denies rash or itching. MUSCULOSKELETAL: Denies myalgia. NEUROLOGIC: Denies headache. All systems reviewed & are unremarkable except as noted in HPI and below PMFSH Past Medical History Medical History Anxiety Bronchitis Depression GERD (gastroesophageal reflux disease) Hyperlipidemia Narcolepsy DARCI (obstructive sleep apnea) PCOS (polycystic ovarian syndrome) RLS (restless legs syndrome) Surgical History Surgical History History of tonsillectomy Social History Social History Smoking packs per day: 1.25 Smoking cigarettes per day: 25.0 Years smoked: 20 Smoking pack-years: 25.00 Smoking status: Current every day smoker Tobacco type: cigarettes Alcohol intake: never Substance use: never Substance use type: does not use Living arrangements: with family Spiritual care concerns: No Comments At time of signature, agree with nursing past medical, surgical, social and family history. There is no relevant family history pertinent to the presenting complaint Exam Narrative: GENERAL: Well-appearing, well-nourished, and in no acute distress. HEAD: Normocephalic EYES: PERRLA, conjunctivae clear ENT: Nares clear, turbinates edematous and erythematous, clear discharge. Mucous membranes moist. TM pearly sagastume with dull light reflex bilaterally; no tragal tenderness. Oropharynx not erythematous without lesions. Tonsils not enlarged and without exudate, no drooling, no hoarseness, no trismus, uvula midline. NECK: Supple. No lymphadenopathy CHEST: Scattered wheeze and rhonchi noted, breath sounds equal. No rales, or stridor. No respiratory distress, speaks in full sentences. HEART: Regular rate and rhythm. No murmur heard. SKIN: Warm, dry, no rash. NEURO: Alert and oriented x3. PSYCH: Normal mood and affect Course Course Emergency Course: Patient is aware of diagnosis, understands and agrees to treatment plan. Antic ipatory guidance given. Patient agrees to follow-up as directed and is aware of reasons to seek care at the emergency department. Portions of this record may have been created with voice recognition software Level of Care: Express Care Visit Vital Signs Vital signs: Vital Signs Temperature 98.6 F 08/16/24 10:17 Pulse Rate 94 08/16/24 10:17 Respiratory Rate 19 08/16/24 10:17 Blood Pressure 149/84 H 08/16/24 10:17 Pulse Oximetry 96 08/16/24 10:17 Oxygen Delivery Room Air 08/16/24 10:17 Temperature 98.6 F 08/16/24 10:17 Pulse Rate 94 08/16/24 10:17 Respiratory Rate 19 08/16/24 10:17 Blood Pressure 149/84 H 08/16/24 10:17 Pulse Oximetry 96 08/16/24 10:17 Oxygen Delivery Room Air 08/16/24 10:17 Reviewed. MDM - URI/Sore Throat MDM Narrative Medical decision making narrative: Differential diagnosis considered: Harris virus, strep pharyngitis, allergic rhinitis, upper respiratory tract infection, sinusitis, rhinosinusitis, nasopharyngitis. viral pharyngitis, otitis media, otitis externa, pneumonia, bronchitis, viral cough syndrome, viral syndrome, and influenza. Exam findings show no acute concerns or changes; patient is non-toxic appearing and is in no distress. Patient is appropriate for outpatient treatment and follow-up. Lab Data Attestation: I reviewed the patient's lab results. Critical Care Time Critical Care Time Critical Care Time: No Discharge Plan Discharge Clinical Impression: Lower respiratory tract infection Patient Disposition: Home, Self-Care Condition: Stable Instructions: Antibiotic Form, Acute Cough (ED) Additional Instructions: 1) Please follow-up with your primary care doctor in the next 1-2 days. 2) If you have any worsening of symptoms or any other urgent concerns please go to the ER. 3) Please take medications as prescribed and continue taking your home medications as usual. 4) Please read and follow information included in discharge instructions. Patient Language: Slovenian Prescriptions: New albuterol sulfate 90 mcg/actuation HFA aerosol inhaler 2 puff INHALATION QID PRN (Reason: shortness of breath or wheezing) Qty: 8.5 0RF methylprednisolone [Medrol ([place])] 4 mg tablets,dose pack See Rx Instructions .ROUTE .COMPLEX Qty: 21 0RF Rx Instructions: orally per package directions doxycycline monohydrate 100 mg tablet 100 mg PO BID 7 Days Qty: 14 0RF No Action benzonatate 200 mg capsule 200 mg PO TID PRN (Reason: cough) Qty: 20 0RF albuterol sulfate 90 mcg/actuation HFA aerosol inhaler INHALATION trazodone 50 mg tablet 50 mg PO PRN PRN (Reason: Anxiety) Januvia 100 mg tablet 100 mg PO HS atorvastatin 80 mg tablet 80 mg PO DAILY meloxicam 15 mg tablet 15 mg PO DAILY PRN (Reason: Pain) ropinirole 0.5 mg tablet 0.5 mg PO HS citalopram 40 mg Tablet 40 mg PO DAILY armodafinil 250 mg Tablet 250 mg PO QAM dexlansoprazole [Dexilant] 60 mg Capsule,Biphase Delayed Releas 80 mg PO DAILY Follow-up/Referrals: [facility] [Primary Care Provider] - Time of Disposition: 11:21
[2024-08-16 10:17] VITALS: BP 149/84; PULSE 94; RESP 19; TEMP 37; O2SAT 96
== END 2024-08-16 11:30 | disposition home or self-care (01) ==
PROVIDERS: Emergency Provider Nurse Practitioner
DX: J22 Unspecified acute lower respiratory infection (principal); F17.210 Nicotine dependence, cigarettes, uncomplicated; K21.9 Gastro-esophageal reflux disease without esophagitis; E78.5 Hyperlipidemia, unspecified; E28.2 Polycystic ovarian syndrome; G25.81 Restless legs syndrome; F41.9 Anxiety disorder, unspecified; F32.A Depression, unspecified
CPT/HCPCS: 99213; G0463

== ENCOUNTER 2024-11-06 08:56 | Emergency (ER) | payer OTHER, SELFPAY ==
[2024-11-06 09:01] VITALS: BP 178/100; PULSE 106; RESP 18; TEMP 36.6; O2SAT 100
[2024-11-06 10:02] VITALS: BP 189/88; PULSE 102; RESP 20; TEMP 36.3; O2SAT 99
[2024-11-06 10:16] LABS: Basophils Percent Auto 0.4 % (0.2-1.2); Eosinophils Absolute Auto 0.3 K/mm3 (0-0.3); Eosinophils Percent Auto 2.5 % (0-4.4); Hematocrit 43.6 % (37.0-47.0); Immature Granulocyte Absolute 0.08 K/mm3 (0.00-0.031); Immature Granulocyte Percent A 0.8 % (0-0.5); Lymphocytes Absolute Auto 1.01 K/mm3 (0.9-3.2); Lymphocytes Percent Auto 9.7 % (18.3-44.2); Mean Corpuscular HGB Conc 32.1 g/dl (32-36); Mean Corpuscular Hemoglobin 27.6 pg (26-34); Mean Corpuscular Volume 85.8 fl (80-100); Mean Platelet Volume 10.2 fl (7.4-10.4); Monocytes Absolute Auto 0.5 K/mm3 (0.1-0.6); Monocytes Percent Auto 4.7 % (2.6-8.5); Neutrophils Absolute Auto 8.5 K/mm3 (1.3-6.7); Neutrophils Percent Auto 81.9 % (45.5-73.1); Platelet Count Result 285 k/mm3 (150-375); Red Blood Count 5.08 M/mm3 (4.2-5.4); Red Cell Distribution Width 15.9 % (11.5-14.5); White Blood Count 10.4 K/mm3 (4.5-10.0)
[2024-11-06 10:32] LABS: Alanine Aminotransferase 21 U/L (6-35); Albumin Level 4.4 g/dL (3.5-5.1); Alkaline Phosphatase 157 U/L (38-126); Anion Gap 12 mmol/L (4-12); Aspartate Amino Transferase 21 U/L (14-36); Bilirubin,Total 0.7 mg/dL (0.2-1.3); Blood Urea Nitrogen 12 mg/dL (7-17); Calcium 9.5 mg/dL (8.4-10.2); Carbon Dioxide 22 mmol/L (22-30); Chloride 101 mmol/L (98-107); Estimated CRCL calculation 138 ml/min; Estimated Glomerular Filt Rate > 60; Glucose 190 mg/dL (65-110); Lipase 20 U/L (23-300); Potassium 4.3 mmol/L (3.4-5.0); Sodium 135 mmol/L (137-145)
--- NOTE | 2024-11-06 10:58 | ED.ABDPAIN ---
HPI - Abdominal Pain General Chief Complaint: Abdominal Pain Stated Complaint: abd pain Time Seen by Provider: 11/06/24 10:01 History of Present Illness HPI narrative: Patient is a 44-year-old female who presents to the ER with complaints of constipation. She reports her last bowel movement was on , 5 days ago, and was ?small. Patient denies any vomiting and reports her last flat this yesterday. She denies any urinary symptoms. Patient reports she has chronic back pain and takes Vicodin. She endorses a history of IBS-C, but has never had a small bowel obstruction. Patient denies chest pain, back pain, shortness a breath, recent fevers. Related Data Home Medications ?Medication ?Instructions ?Recorded ?Confirmed ?Last Taken ?Type atorvastatin 80 mg tablet 80 mg PO DAILY 12/10/21 08/16/24 09/29/22 History meloxicam 15 mg tablet 15 mg PO DAILY PRN Pain 12/10/21 08/16/24 09/29/22 History ropinirole 0.5 mg tablet 0.5 mg PO HS 12/10/21 08/16/24 09/29/22 History sitagliptin phosphate 100 mg 100 mg PO HS 07/10/22 08/16/24 09/29/22 History tablet (Januvia) trazodone 50 mg tablet 50 mg PO PRN PRN Anxiety 07/10/22 08/16/24 Unknown History armodafinil 250 mg tablet 250 mg PO QAM 09/21/22 08/16/24 09/29/22 History citalopram 40 mg tablet 40 mg PO DAILY 09/21/22 08/16/24 09/29/22 History dexlansoprazole 60 mg 80 mg PO DAILY 09/21/22 08/16/24 09/29/22 History capsule,biphase delayed release (Dexilant) albuterol sulfate 90 mcg/actuation inhalation 08/16/24 Unknown History aerosol inhaler Allergies Allergy/AdvReac Type Severity Reaction Status Date / Time erythromycin base Allergy Severe Nausea and Verified 08/16/24 10:26 Vomiting metformin Allergy Rash Verified 08/16/24 10:26 prochlorperazine AdvReac Severe Agitated Verified 08/16/24 10:26 Review of Systems Review of Systems: All systems reviewed & are unremarkable except as noted in HPI and below PMFSH Past Medical History Medical History Narcolepsy Depression Anxiety PCOS (polycystic ovarian syndrome) GERD (gastroesophageal reflux disease) DARCI (obstructive sleep apnea) Hyperlipidemia RLS (restless legs syndrome) Bronchitis Surgical History Surgical History History of tonsillectomy Social History Social History Smoking packs per day: 1.25 Smoking cigarettes per day: 25.0 Years smoked: 20 Smoking pack-years: 25.00 Smoking status: Current every day smoker Tobacco type: cigarettes Alcohol intake: never Substance use: never Substance use type: does not use Living arrangements: with family Spiritual care concerns: No Exam Narrative: GENERAL: Ill-appearing, well-nourished, non-toxic, in mild distress d/t pain. HEAD: Normocephalic, atraumatic. NECK: Supple. No adenopathy, no masses. RESPIRATORY: Airway patent, respirations nonlabored. Clear to auscultation bilaterally, no rales, rhonchi, wheezing. CARDIOVASCULAR: Regular rate and rhythm without murmurs, rubs, or gallops. Peripheral pulses 2+ and equal bilaterally. ABDOMINAL: Soft, tender RLQ and LLQ, distended, no hepatosplenomegaly. Normoactive BS. 1225- Rectal exam performed. [employer]ER able to feel stool and pt's guaiac was negative. MUSCULOSKELETAL: Moves all extremities. Strength/ROM intact without gross deformities. SKIN: Warm, dry, normal color. No rashes. NEURO: A&O X3. Speech clear. Cranial nerves II-XII grossly intact. Steady gait. No ataxic movements. PSYCHIATRIC: Appropriate mood and affect. Normal interaction. Course Vital Signs Vital signs: Vital Signs Temperature 36.6 C 11/06/24 09:01 Pulse Rate 106 H 11/06/24 09:01 Respiratory Rate 18 11/06/24 09:01 Blood Pressure 178/100 H 11/06/24 09:01 Pulse Oximetry 100 11/06/24 09:01 Temperature 36.3 C L 11/06/24 10:02 Pulse Rate 96 11/06/24 11:26 Respiratory Rate 15 11/06/24 11:26 Blood Pressure 168/70 H 11/06/24 11:26 Pulse Oximetry 99 11/06/24 11:26 Oxygen Delivery Room Air 11/06/24 10:02 MDM - Abdominal Pain MDM Narrative Medical decision making narrative: Patient is a 44-year-old female who presents to the ER with complaints of constipation. She reports her last bowel movement was on , 5 days ago, and was ?small. Patient denies any vomiting and reports her last flat this yesterday. She denies any urinary symptoms. Patient reports she has chronic back pain and takes Vicodin. She endorses a history of IBS-C, but has never had a small bowel obstruction. Patient denies chest pain, back pain, shortness a breath, recent fevers. Labs Ordered: CBC, CMP, lipase, UA, COVID/flu/RSV Imaging Ordered: CT abdomen pelvis Medications Ordered: 1 L normal saline IV bolus, Toradol 30 mg IV Results: Patient's abdominal pelvis CT scan indicates 1. Possible colitis of the sigmoid colon. 2. Constipation. 3. Bilateral kidney stones. Diagnosis: constipation, kidney stones, possible diverticulitis Patient Education/Shared MDM: Results of CT scan and rectal exam shared with patient. She endorses improvement following medication administration. Patient strongly advised to maintain hydration status upon discharge and follow-up with her PCP as soon as possible. She will be discharged home with prescription for Miralax x 4 times/day, Flagyl and Ciprofloxacin. Strict return precautions provided. Patient verbalized understanding is in agreement with plan. Vital signs stable at time of discharge. All questions answered. Differential Diagnosis Differential diagnosis: Likely abdominal pain, calculus of kidney, diverticulitis, gastroenteritis, pancreatitis and small bowel obstruction Lab Data Attestation: I reviewed the patient's lab results. 11/06/24 10:09 11/06/24 10:09 Labs: Lab Results 11/06/24 11/06/24 11/06/24 Range/Units 10:08 10:09 11:26 WBC 10.4 H (4.5-10.0) K/mm3 RBC 5.08 (4.2-5.4) M/mm3 Hgb 14.0 (12.0-15.0) g/dL Hct 43.6 (37.0-47.0) % MCV 85.8 (80-100) fl MCH 27.6 (26-34) pg MCHC 32.1 (32-36) g/dl RDW 15.9 H (11.5-14.5) % Plt Count 285 (150-375) k/mm3 MPV 10.2 (7.4-10.4) fl Immature Gran % (Auto) 0.8 H (0-0.5) % Neut % (Auto) 81.9 H (45.5-73.1) % Lymph % (Auto) 9.7 L (18.3-44.2) % [place] % (Auto) 4.7 (2.6-8.5) % Eos % (Auto) 2.5 (0-4.4) % Baso % (Auto) 0.4 (0.2-1.2) % Lymph # (Auto) 1.01 (0.9-3.2) K/mm3 [place] # (Auto) 0.5 (0.1-0.6) K/mm3 Eos # (Auto) 0.3 (0-0.3) K/mm3 Baso # (Auto) 0.0 (0.0-0.1) K/mm3 Abs Immat Gran (auto) 0.08 H (0.00-0.031) K/mm3 Absolute Neuts (auto) 8.5 H (1.3-6.7) K/mm3 Absolute Nucleated RBC 0.000 (0.0-0.012) K/mm3 Nucleated RBC % 0.0 (0.0-0.2) % PT 13.1 (11.1-14.7) Seconds INR 1.0 APTT 24.8 (22.3-36.8) Seconds Sodium 135 L (137-145) mmol/L Potassium 4.3 (3.4-5.0) mmol/L Chloride 101 (98-107) mmol/L Carbon Dioxide 22 (22-30) mmol/L Anion Gap 12 (4-12) mmol/L BUN 12 (7-17) mg/dL Creatinine 0.57 L (0.7-1.0) mg/dL Estim Creat Clear Calc 138 ml/min Estimated GFR > 60 (59 - ) Glucose 190 H (65-110) mg/dL Calcium 9.5 (8.4-10.2) mg/dL Total Bilirubin 0.7 (0.2-1.3) mg/dL AST 21 (14-36) U/L ALT 21 (6-35) U/L Alkaline Phosphatase 157 H (38-126) U/L Troponin I < 0.012 (0.000-0.034) ng/mL Total Protein 8.0 (6.3-8.2) g/dL Albumin 4.4 (3.5-5.1) g/dL Lipase 20 L (23-300) U/L Urine Color Yellow (Yellow) Urine Appearance Clear (Clear) Urine pH 6.0 (5.0-9.0) Ur Specific [place] 1.021 (1.001-1.035) Urine Protein 2+ H (Negative) mg/dL Urine Glucose (UA) 2+ H (Negative) mg/dL Urine Ketones 3+ H (Negative) mg/dL Ur Blood (Man) Negative (Negative) Urine Nitrate Negative (Negative) Urine Bilirubin Negative (Negative) Urine Urobilinogen 1.0 (<2.0) mg/dL Leukocyte Esterase Rfl Negative (Negative) RUMA/UL Urine RBC 0-2 (0-2) /hpf Urine WBC 0-5 (0-3) /hpf Ur Squamous Epith Cells None seen (Few) /hpf Urine Bacteria None seen /hpf Urine Casts 0-2 Influenza A (RT-PCR) Negative (Negative) Influenza B (RT-PCR) Negative (Negative) RSV (RT-PCR) Negative (Negative) SARS-CoV-2 RNA (RT-PCR) Negative (Negative) Imaging Data Attestation: I personally reviewed and interpreted this imaging study as follows: Radiologist's impression: ITS Impressions Abdomen/Pelvis CT 11/06/24 11:45 IMPRESSION: 1. Possible colitis of the sigmoid colon. 2. Constipation. 3. Bilateral kidney stones. Discharge Plan Discharge Clinical Impression: Diverticulitis, Constipation, Kidney calculi Patient Disposition: Home, Self-Care Condition: Stable Instructions: Antibiotic Form, Diverticulitis (ED), Constipation (ED), Diverticulitis Diet (ED) Additional Instructions: Please return to the ER with an worsening symptoms. Follow-up with primary care provider in the next 2-3 days. Take all medications as prescribed. Complete your whole dose of antibiotics. Patient Language: French Prescriptions: New amoxicillin-pot clavulanate 875-125 mg tablet 1 tablet PO Q12H Qty: 20 0RF polyethylene glycol 3350 [Miralax] 17 gram powder in packet 17 g PO QID Qty: 100 0RF No Action benzonatate 200 mg capsule 200 mg PO TID PRN (Reason: cough) Qty: 20 0RF albuterol sulfate 90 mcg/actuation HFA aerosol inhaler INHALATION albuterol sulfate 90 mcg/actuation HFA aerosol inhaler 2 puff INHALATION QID PRN (Reason: shortness of breath or wheezing) Qty: 8.5 0RF methylprednisolone [Medrol ([place])] 4 mg tablets,dose pack See Rx Instructions .ROUTE .COMPLEX Qty: 21 0RF Rx Instructions: orally per package directions doxycycline monohydrate 100 mg tablet 100 mg PO BID 7 Days Qty: 14 0RF trazodone 50 mg tablet 50 mg PO PRN PRN (Reason: Anxiety) Januvia 100 mg tablet 100 mg PO HS atorvastatin 80 mg tablet 80 mg PO DAILY meloxicam 15 mg tablet 15 mg PO DAILY PRN (Reason: Pain) ropinirole 0.5 mg tablet 0.5 mg PO HS citalopram 40 mg Tablet 40 mg PO DAILY armodafinil 250 mg Tablet 250 mg PO QAM dexlansoprazole [Dexilant] 60 mg Capsule,Biphase Delayed Releas 80 mg PO DAILY Follow-up/Referrals: Humza,ANTOINETTE Bain [Primary Care Provider] - Time of Disposition: 12:33
[2024-11-06] MEDS: SODIUM CHLORIDE 0.9% IV 1,000 ML 999 ML IV CONT (11:17)
[2024-11-06] MEDS: KETOROLAC 30 MG/ML VIAL (*BKC) IV PUSH (11:19)
[2024-11-06 11:26] VITALS: BP 168/70; PULSE 96; RESP 15; O2SAT 99
[2024-11-06 11:26] LABS: Prothrombin Time 13.1 Seconds (11.1-14.7)
[2024-11-06 11:27] LABS: Partial Thromboplastin Time 24.8 Seconds (22.3-36.8)
[2024-11-06 11:33] LABS: Troponin I < 0.012 ng/mL (0.000-0.034)
[2024-11-06 11:38] LABS: Add Urine Microscopic? YES; Appearance Urine Clear (Clear); Bacteria Urine None Seen /hpf; Bilirubin Urine Negative (Negative); Blood Urine Negative (Negative); Color Urine Yellow (Yellow); Glucose Urine UA 2+ mg/dL (Negative); Ketones Urine 3+ mg/dL (Negative); Leukocyte Esterase Ur Negative LEU/UL (Negative); Nitrate Urine Negative (Negative); Non Pathogenic Casts 0-2; Protein Urine 2+ mg/dL (Negative); RBC Urine 0-2 /hpf (0-2); Specific Grav Ur 1.021 (1.001-1.035); Squamous Epithelial Cell Urine None Seen /hpf (Few); WBC Urine 0-5 /hpf (0-3)
[2024-11-06 12:10] LABS: Influenza A QL RT-PCR Negative (Negative); Influenza B QL RT-PCR Negative (Negative); RSV RNA, RT-PCR Negative (Negative); SARS-CoV-2 RNA PCR Negative (Negative)
[2024-11-06 12:41] VITALS: BP 181/85; PULSE 97; RESP 18; TEMP 36.7; O2SAT 99
== END 2024-11-06 12:43 | disposition home or self-care (01) ==
PROVIDERS: Emergency Medicine; Emergency Provider Registered Nurse; PCP Physician Assistant
DX: K58.1 Irritable bowel syndrome with constipation (principal); K57.92 Diverticulitis of intestine, part unspecified, without perforation or abscess without bleeding; N20.0 Calculus of kidney; Z20.822 Contact with and (suspected) exposure to COVID-19; E28.2 Polycystic ovarian syndrome; E78.5 Hyperlipidemia, unspecified; K21.9 Gastro-esophageal reflux disease without esophagitis; G47.33 Obstructive sleep apnea (adult) (pediatric); G25.81 Restless legs syndrome; F32.A Depression, unspecified; F41.9 Anxiety disorder, unspecified; F17.210 Nicotine dependence, cigarettes, uncomplicated; Z87.442 Personal history of urinary calculi; R94.31 Abnormal electrocardiogram [ECG] [EKG]
CPT/HCPCS: 36415; 74177; 80053; 81001; 83690; 84484; 85025; 85610; 85730; 87637; 93005; 96361; 96374; 99284; J1885; J7030; Q9967